=== PATIENT | female | born 1985 | race Hispanic/Latino ===

== ENCOUNTER 2024-04-30 13:08 | Outpatient (CLI) | payer OTHER | END 2024-04-30 13:09 | disposition home or self-care (01) | LOC: BICRAD 13:08 | PROVIDERS: ATTEND Family Medicine | DX: S99.921A Unspecified injury of right foot, initial encounter (principal); R93.7 Abnormal findings on diagnostic imaging of other parts of musculoskeletal system; Y93.6A Activity, physical games generally associated with school recess, summer camp and children ==